=== PATIENT | female | born 1995 | race Caucasian/White ===

== ENCOUNTER 2019-04-10 21:55 | Emergency (ER) | payer OTHER ==
[~2019-04-10] VITALS: Ht 160 cm; Wt 103.9 kg
[2019-04-10 22:22] VITALS: Ht 160 cm; Wt 103.9 kg
[2019-04-10 23:53] VITALS: BP 109/71
== END 2019-04-10 23:53 | disposition home or self-care (01) ==
LOC: ED 21:55
DX: S90.31XA Contusion of right foot, initial encounter (principal); X58.XXXA Exposure to other specified factors, initial encounter; Y93.89 Activity, other specified; Y92.89 Other specified places as the place of occurrence of the external cause; Y99.8 Other external cause status